=== PATIENT | female | born 1940 | race African-American/Black ===

== ENCOUNTER 2018-05-29 06:14 | Inpatient (IN) ==
[2018-05-29] MEDS ORDERED: ONDANSETRON 4 MG/2 ML VIAL IV STA (06:35)
[2018-05-29] MEDS ORDERED: ALBUTEROL/IPRATROPIUM 3 ML NEB RESP TX STA (06:35)
[2018-05-29] MEDS ORDERED: methylPREDNISolone SOD SUC 125 MG/2 ML VIAL IV STA (06:35)
[2018-05-29] MEDS ORDERED: LEVOFLOXACIN INJ 750 MG in PREMIX 1 EACH IV STA (06:35)
[2018-05-29 07:10] LABS: Basophils % 0.3 % (0.0-0.8); Eosinophils # 0.1 10*3/uL (0.0-0.87); Eosinophils % 1.6 % (0.00-10.9); Hematocrit 29.8 VOL% (35.7-47.0); Hemoglobin 9.4 GM/DL (12.0-16.0); Immature Granulocytes % 0.3 %; Immature Granulocytes Absolute 0.02 #; Lymphocytes # 0.8 10*3/uL (1.4-4.0); Lymphocytes % 10.8 % (21.3-54.2); Mean Corpuscular HGB Conc 31.5 GM/DL (32-36); Mean Corpuscular Hemoglobin 28 PG (27-34); Mean Corpuscular Volume 87.6 FL (87-102); Mean Platelet Volume 11.1 FL (9.6-12.0); Monocytes # 0.3 10*3/uL (0.11-0.8); Neutrophils # 6.3 10*3/uL (1.4-7.4); Platelet Count 165 T/CUMM (130-400); White Blood Count 7.5 T/CUMM (4-12)
[2018-05-29 07:45] LABS: Alanine Aminotransferase 24 U/L (13-56); Albumin 3.3 G/DL (3.4-5.0); Alkaline Phosphatase 65 U/L (45-117); Aspartate Amino Transferase 20 U/L (0-37); Bilirubin,Total < 0.39 MG/DL (0.2-1.0); Blood Urea Nitrogen 30 MG/DL (7-18); Calcium 8.7 MG/DL (8.5-10.1); Glucose 114 MG/DL (74-106); Osmolality,Calculated 289.1 MOS/KG (273-304); Potassium 4.4 MMOL/L (3.5-5.1); Sodium 142 MMOL/L (136-145); Total Protein 7.1 G/DL (6.4-8.3)
[2018-05-29 08:04] LABS: Apearance,Urine CLEAR (Clear); Bilirubin,Urine Negative (Negative); Blood, Urine Negative (Negative); Glucose,Urine (UA) Negative (Negative); Ketones,Urine Negative (Negative); Nitrite,Urine Negative (Negative); Protein,Urine 30 MG/DL; RBC,Urine <1 /HPF (0-4); Squamous Epithelial Cell,Urine Occasional /HPF (0-10); Urine Color Yellow (Yellow); Urine Specific Gravity 1.012 (1.001-1.035); Urine Urobilinogen < 2.0 EU/DL (0.2-1.0); WBC,Urine 1 /HPF (0-6)
[2018-05-29] MEDS ORDERED: ONDANSETRON 4 MG/2 ML VIAL IV PRN (09:11)
[2018-05-29] MEDS ORDERED: GLUCAGON 1 MG VIAL IM PRN ×2 (10:04→15:44)
[2018-05-29] MEDS ORDERED: DEXTROSE 50% 25 GM/50 ML VIAL IV PRN ×2 (10:04→15:44)
[2018-05-29] MEDS: PANTOPRAZOLE 40 MG TABLET PO SCH (11:15)
[2018-05-29] MEDS: INSULIN LISPRO 100 UNIT/ML SUBCUT SCH ×2 (17:01→20:33)
[2018-05-29] MEDS: FUROSEMIDE 40 MG/4 ML VIAL IV SCH (17:01)
[2018-05-29] MEDS: INSULIN ASPART PROTAMINE/ASPART 70/30 100 UNIT/ML SUBCUT SCH (18:01)
[2018-05-29] MEDS: DOXAZOSIN 4 MG TABLET PO SCH (20:33)
[2018-05-29] MEDS: CETIRIZINE 10 MG TABLET PO SCH (20:33)
[2018-05-29] MEDS: ROSUVASTATIN 20 MG TABLET PO SCH (20:33)
[2018-05-30 04:57] LABS: Basophils % 0.1 % (0.0-0.8); Hematocrit 28.1 VOL% (35.7-47.0); Immature Granulocytes % 1.5 %; Immature Granulocytes Absolute 0.25 #; Lymphocytes # 1.1 10*3/uL (1.4-4.0); Lymphocytes % 6.6 % (21.3-54.2); Mean Corpuscular Hemoglobin 28 PG (27-34); Mean Corpuscular Volume 86.2 FL (87-102); Mean Platelet Volume 12.4 FL (9.6-12.0); Neutrophils # 14.7 10*3/uL (1.4-7.4); Neutrophils % 85.8 % (38.7-73.9); Platelet Count 161 T/CUMM (130-400); Red Blood Count 3.26 MC/CUMM (3.8-5.5); Red Cell Distribution Width 14.6 % (9.3-17.3); White Blood Count 17.1 T/CUMM (4-12)
[2018-05-30 05:21] LABS: Hypochromasia 1+
[2018-05-30 05:22] LABS: Microcytosis 1+; Ovalocytes Few; Polychromasia Slight
[2018-05-30 05:23] LABS: Platelet Estimate Adequate
[2018-05-30 05:27] LABS: Calcium 8.7 MG/DL (8.5-10.1); Osmolality,Calculated 291.8 MOS/KG (273-304); Potassium 4.2 MMOL/L (3.5-5.1); Risk Ratio 2.1; Thyroid Stimulating Hormone 0.839 uIU/ml (0.358-3.74); VLDL CHOLESTEROL 13.4 MG/DL
[2018-05-30] MEDS ORDERED: INSULIN ASPART PROTAMINE/ASPART 70/30 100 UNIT/ML SUBCUT SCH ×2 (08:00)
[2018-05-30] MEDS: LEVOFLOXACIN INJ 750 MG in PREMIX 1 EACH IV SCH (08:56)
[2018-05-30] MEDS: PANTOPRAZOLE 40 MG TABLET PO SCH (08:56)
[2018-05-30] MEDS: DOXAZOSIN 4 MG TABLET PO SCH ×2 (08:56→21:23)
[2018-05-30] MEDS: FUROSEMIDE 40 MG/4 ML VIAL IV SCH ×2 (08:56→17:00)
[2018-05-30] MEDS: INSULIN LISPRO 100 UNIT/ML SUBCUT SCH ×4 (08:57→21:24)
[2018-05-30] MEDS: MULTIVITAMIN (CENTRUM) TABLET PO SCH (08:57)
[2018-05-30] MEDS ORDERED: cloNIDine 0.1 MG TABLET PO SCH (09:00)
[2018-05-30] MEDS: INSULIN ASPART PROTAMINE/ASPART 70/30 100 UNIT/ML SUBCUT SCH (17:00)
[2018-05-30] MEDS: ROSUVASTATIN 20 MG TABLET PO SCH (21:24)
[2018-05-30] MEDS: CETIRIZINE 10 MG TABLET PO SCH (21:24)
[2018-05-31 04:21] LABS: Basophils % 0.1 % (0.0-0.8); Eosinophils # 0.1 10*3/uL (0.0-0.87); Eosinophils % 0.6 % (0.00-10.9); Hematocrit 25.6 VOL% (35.7-47.0); Immature Granulocytes Absolute 0.15 #; Lymphocytes % 14.1 % (21.3-54.2); Mean Corpuscular HGB Conc 31.3 GM/DL (32-36); Mean Corpuscular Hemoglobin 27 PG (27-34); Mean Corpuscular Volume 87.4 FL (87-102); Mean Platelet Volume 11.9 FL (9.6-12.0); Monocytes # 1.1 10*3/uL (0.11-0.8); Monocytes % 7.4 % (1.7-12.7); Neutrophils % 76.8 % (38.7-73.9); Platelet Count 143 T/CUMM (130-400); Red Blood Count 2.93 MC/CUMM (3.8-5.5); Red Cell Distribution Width 15.1 % (9.3-17.3); White Blood Count 14.3 T/CUMM (4-12)
[2018-05-31 04:47] LABS: Calcium 8.5 MG/DL (8.5-10.1); Osmolality,Calculated 291.3 MOS/KG (273-304); Potassium 4.1 MMOL/L (3.5-5.1)
[2018-05-31] MEDS: INSULIN LISPRO 100 UNIT/ML SUBCUT SCH ×4 (08:27→21:37)
[2018-05-31] MEDS: DOXAZOSIN 4 MG TABLET PO SCH ×2 (09:00→21:36)
[2018-05-31] MEDS: INSULIN ASPART PROTAMINE/ASPART 70/30 100 UNIT/ML SUBCUT SCH ×2 (09:00→16:52)
[2018-05-31] MEDS: MULTIVITAMIN (CENTRUM) TABLET PO SCH (09:01)
[2018-05-31] MEDS: PANTOPRAZOLE 40 MG TABLET PO SCH (09:01)
[2018-05-31] MEDS ORDERED: BISACODYL 5 MG TABLET PO ONE (09:04)
[2018-05-31] MEDS: cephALEXin 500 MG CAPSULE PO SCH ×2 (11:58→21:36)
[2018-05-31] MEDS: CETIRIZINE 10 MG TABLET PO SCH (21:36)
[2018-05-31] MEDS: ROSUVASTATIN 20 MG TABLET PO SCH (21:37)
[2018-06-01 04:28] LABS: Basophils % 0.1 % (0.0-0.8); Eosinophils # 0.3 10*3/uL (0.0-0.87); Eosinophils % 2.7 % (0.00-10.9); Hematocrit 25.8 VOL% (35.7-47.0); Immature Granulocytes % 0.7 %; Immature Granulocytes Absolute 0.07 #; Lymphocytes # 1.9 10*3/uL (1.4-4.0); Lymphocytes % 19.7 % (21.3-54.2); Mean Corpuscular Hemoglobin 27 PG (27-34); Mean Corpuscular Volume 87.8 FL (87-102); Mean Platelet Volume 11.2 FL (9.6-12.0); Monocytes # 0.8 10*3/uL (0.11-0.8); Monocytes % 7.8 % (1.7-12.7); Neutrophils # 6.8 10*3/uL (1.4-7.4); Platelet Count 149 T/CUMM (130-400); Red Blood Count 2.94 MC/CUMM (3.8-5.5); Red Cell Distribution Width 15.2 % (9.3-17.3); White Blood Count 9.8 T/CUMM (4-12)
[2018-06-01 04:51] LABS: Calcium 8.7 MG/DL (8.5-10.1); Osmolality,Calculated 294.3 MOS/KG (273-304); Potassium 4.2 MMOL/L (3.5-5.1)
[2018-06-01] MEDS: LEVOFLOXACIN INJ 750 MG in PREMIX 1 EACH IV SCH (10:38)
[2018-06-01] MEDS: DOXAZOSIN 4 MG TABLET PO SCH ×2 (10:39→21:48)
[2018-06-01] MEDS: INSULIN ASPART PROTAMINE/ASPART 70/30 100 UNIT/ML SUBCUT SCH ×2 (10:39→17:27)
[2018-06-01] MEDS: cephALEXin 500 MG CAPSULE PO SCH ×2 (10:40→21:49)
[2018-06-01] MEDS: INSULIN LISPRO 100 UNIT/ML SUBCUT SCH ×4 (10:40→21:49)
[2018-06-01] MEDS: PANTOPRAZOLE 40 MG TABLET PO SCH (10:40)
[2018-06-01] MEDS: MULTIVITAMIN (CENTRUM) TABLET PO SCH (10:40)
[2018-06-01] MEDS: ACETAMINOPHEN 325 MG TABLET PO PRN (17:30)
[2018-06-01] MEDS ORDERED: IBUPROFEN 600 MG TABLET PO PRN (18:39)
[2018-06-01] MEDS: CETIRIZINE 10 MG TABLET PO SCH (21:49)
[2018-06-01] MEDS: ROSUVASTATIN 20 MG TABLET PO SCH (21:49)
[2018-06-02 04:58] LABS: Basophils % 0.3 % (0.0-0.8); Eosinophils # 0.3 10*3/uL (0.0-0.87); Eosinophils % 3.3 % (0.00-10.9); Hematocrit 26.5 VOL% (35.7-47.0); Hemoglobin 8.3 GM/DL (12.0-16.0); Immature Granulocytes % 0.4 %; Immature Granulocytes Absolute 0.03 #; Lymphocytes # 1.8 10*3/uL (1.4-4.0); Lymphocytes % 22.9 % (21.3-54.2); Mean Corpuscular HGB Conc 31.3 GM/DL (32-36); Mean Corpuscular Hemoglobin 27 PG (27-34); Mean Corpuscular Volume 84.9 FL (87-102); Mean Platelet Volume 11.7 FL (9.6-12.0); Monocytes # 0.7 10*3/uL (0.11-0.8); Monocytes % 9.3 % (1.7-12.7); Neutrophils # 4.9 10*3/uL (1.4-7.4); Neutrophils % 63.8 % (38.7-73.9); Platelet Count 164 T/CUMM (130-400); Red Blood Count 3.12 MC/CUMM (3.8-5.5); White Blood Count 7.6 T/CUMM (4-12)
[2018-06-02 05:15] LABS: Osmolality,Calculated 292.3 MOS/KG (273-304); Potassium 4.3 MMOL/L (3.5-5.1)
[2018-06-02] MEDS: INSULIN LISPRO 100 UNIT/ML SUBCUT SCH ×4 (08:00→20:33)
[2018-06-02] MEDS: INSULIN ASPART PROTAMINE/ASPART 70/30 100 UNIT/ML SUBCUT SCH ×2 (10:25→16:58)
[2018-06-02] MEDS: ASPIRIN EC 81 MG TABLET PO SCH (10:35)
[2018-06-02] MEDS: DOXAZOSIN 4 MG TABLET PO SCH ×2 (10:35→22:25)
[2018-06-02] MEDS: amLODIPine 5 MG TABLET PO SCH (10:35)
[2018-06-02] MEDS: PANTOPRAZOLE 40 MG TABLET PO SCH (10:35)
[2018-06-02] MEDS: MULTIVITAMIN (CENTRUM) TABLET PO SCH (10:35)
[2018-06-02] MEDS: cephALEXin 500 MG CAPSULE PO SCH ×2 (10:36→22:25)
[2018-06-02] MEDS: FUROSEMIDE 40 MG TABLET PO SCH ×2 (10:36→16:57)
[2018-06-02] MEDS: CETIRIZINE 10 MG TABLET PO SCH (22:25)
[2018-06-02] MEDS: ROSUVASTATIN 20 MG TABLET PO SCH (22:25)
[2018-06-02] MEDS: ENOXAPARIN 30 MG/0.3 ML SYRINGE SUBCUT SCH (22:26)
[2018-06-03 06:27] LABS: Basophils % 0.2 % (0.0-0.8); Eosinophils # 0.2 10*3/uL (0.0-0.87); Hematocrit 27.9 VOL% (35.7-47.0); Hemoglobin 8.9 GM/DL (12.0-16.0); Immature Granulocytes % 0.7 %; Immature Granulocytes Absolute 0.06 #; Lymphocytes # 1.7 10*3/uL (1.4-4.0); Lymphocytes % 19.3 % (21.3-54.2); Mean Corpuscular HGB Conc 31.9 GM/DL (32-36); Mean Corpuscular Hemoglobin 27 PG (27-34); Mean Corpuscular Volume 84.3 FL (87-102); Mean Platelet Volume 11.8 FL (9.6-12.0); Monocytes # 0.7 10*3/uL (0.11-0.8); Neutrophils # 6.3 10*3/uL (1.4-7.4); Neutrophils % 69.8 % (38.7-73.9); Platelet Count 182 T/CUMM (130-400); Red Blood Count 3.31 MC/CUMM (3.8-5.5)
[2018-06-03 06:55] LABS: Calcium 9.2 MG/DL (8.5-10.1)
[2018-06-03] MEDS: INSULIN LISPRO 100 UNIT/ML SUBCUT SCH ×4 (07:09→22:54)
[2018-06-03] MEDS: DOXAZOSIN 4 MG TABLET PO SCH ×2 (08:34→20:37)
[2018-06-03] MEDS: INSULIN ASPART PROTAMINE/ASPART 70/30 100 UNIT/ML SUBCUT SCH ×2 (08:34→16:05)
[2018-06-03] MEDS: MULTIVITAMIN (CENTRUM) TABLET PO SCH (08:34)
[2018-06-03] MEDS: amLODIPine 5 MG TABLET PO SCH (08:34)
[2018-06-03] MEDS: PANTOPRAZOLE 40 MG TABLET PO SCH (08:34)
[2018-06-03] MEDS: ASPIRIN EC 81 MG TABLET PO SCH (08:34)
[2018-06-03] MEDS: cephALEXin 500 MG CAPSULE PO SCH ×2 (08:34→20:38)
[2018-06-03] MEDS: FUROSEMIDE 40 MG TABLET PO SCH ×2 (08:36→16:04)
[2018-06-03] MEDS: ISOSORBIDE MONONITRATE 30 MG TABLET PO SCH (09:47)
[2018-06-03] MEDS ORDERED: amLODIPine 5 MG TABLET PO ONE (10:00)
[2018-06-03] MEDS: LEVOFLOXACIN INJ 750 MG in PREMIX 1 EACH IV SCH (10:35)
[2018-06-03] MEDS ORDERED: traMADol 50 MG TABLET PO PRN (10:48)
[2018-06-03] MEDS ORDERED: LEVOFLOXACIN 750 MG TABLET PO ONE (11:00)
[2018-06-03] MEDS: ALBUTEROL 1.25 MG/3 ML NEB RESP TX SCH ×3 (11:45→19:54)
[2018-06-03 11:58] LABS: Creatinine,Urine Random 92 MG/DL; Total Protein,Urine Random 20 MG/DL; Urea Nitrogen, Urine Random 512 MG/DL
[2018-06-03] MEDS: ACETAMINOPHEN 325 MG TABLET PO PRN (20:35)
[2018-06-03] MEDS: ROSUVASTATIN 20 MG TABLET PO SCH (20:37)
[2018-06-03] MEDS: CETIRIZINE 10 MG TABLET PO SCH (20:37)
[2018-06-03] MEDS: ENOXAPARIN 30 MG/0.3 ML SYRINGE SUBCUT SCH (20:42)
[2018-06-04] MEDS: ALBUTEROL 1.25 MG/3 ML NEB RESP TX SCH ×4 (00:51→20:10)
[2018-06-04 05:50] LABS: Basophils % 0.2 % (0.0-0.8); Eosinophils # 0.2 10*3/uL (0.0-0.87); Eosinophils % 2.1 % (0.00-10.9); Hematocrit 29.1 VOL% (35.7-47.0); Hemoglobin 9.4 GM/DL (12.0-16.0); Immature Granulocytes % 0.6 %; Immature Granulocytes Absolute 0.05 #; Lymphocytes % 22.5 % (21.3-54.2); Mean Corpuscular HGB Conc 32.3 GM/DL (32-36); Mean Corpuscular Hemoglobin 27 PG (27-34); Mean Corpuscular Volume 84.6 FL (87-102); Mean Platelet Volume 11.4 FL (9.6-12.0); Monocytes # 0.7 10*3/uL (0.11-0.8); Monocytes % 7.6 % (1.7-12.7); Neutrophils # 5.8 10*3/uL (1.4-7.4); Platelet Count 192 T/CUMM (130-400); Red Blood Count 3.44 MC/CUMM (3.8-5.5); Red Cell Distribution Width 14.9 % (9.3-17.3); White Blood Count 8.7 T/CUMM (4-12)
[2018-06-04 05:59] LABS: Calcium 9.1 MG/DL (8.5-10.1); Osmolality,Calculated 293.1 MOS/KG (273-304)
[2018-06-04] MEDS: FUROSEMIDE 40 MG TABLET PO SCH (09:29)
[2018-06-04] MEDS: INSULIN LISPRO 100 UNIT/ML SUBCUT SCH ×4 (09:29→22:26)
[2018-06-04] MEDS: INSULIN ASPART PROTAMINE/ASPART 70/30 100 UNIT/ML SUBCUT SCH ×2 (09:29→17:06)
[2018-06-04] MEDS: MULTIVITAMIN (CENTRUM) TABLET PO SCH (09:30)
[2018-06-04] MEDS: ASPIRIN EC 81 MG TABLET PO SCH (09:30)
[2018-06-04] MEDS: DOXAZOSIN 4 MG TABLET PO SCH ×2 (09:30→22:25)
[2018-06-04] MEDS: ISOSORBIDE MONONITRATE 30 MG TABLET PO SCH (09:31)
[2018-06-04] MEDS: amLODIPine 10 MG TABLET PO SCH (09:31)
[2018-06-04] MEDS: cephALEXin 500 MG CAPSULE PO SCH ×2 (09:31→22:25)
[2018-06-04] MEDS: PANTOPRAZOLE 40 MG TABLET PO SCH (09:32)
[2018-06-04] MEDS ORDERED: KETOROLAC 10 MG TABLET PO ONE (10:30)
[2018-06-04] MEDS: METHOCARBAMOL 500 MG TABLET PO PRN (14:36)
[2018-06-04] MEDS: FLUCONAZOLE 100 MG TABLET PO SCH (14:36)
[2018-06-04] MEDS: ROSUVASTATIN 20 MG TABLET PO SCH (22:26)
[2018-06-04] MEDS: CETIRIZINE 10 MG TABLET PO SCH (22:27)
[2018-06-04] MEDS: ENOXAPARIN 30 MG/0.3 ML SYRINGE SUBCUT SCH (22:27)
[2018-06-05] MEDS: ALBUTEROL 1.25 MG/3 ML NEB RESP TX SCH ×2 (00:40→06:57)
[2018-06-05 06:16] LABS: Basophils % 0.3 % (0.0-0.8); Eosinophils # 0.2 10*3/uL (0.0-0.87); Eosinophils % 3.4 % (0.00-10.9); Hematocrit 25.8 VOL% (35.7-47.0); Hemoglobin 8.2 GM/DL (12.0-16.0); Immature Granulocytes % 0.7 %; Immature Granulocytes Absolute 0.05 #; Lymphocytes # 1.6 10*3/uL (1.4-4.0); Lymphocytes % 22.9 % (21.3-54.2); Mean Corpuscular HGB Conc 31.8 GM/DL (32-36); Mean Corpuscular Hemoglobin 27 PG (27-34); Mean Corpuscular Volume 85.4 FL (87-102); Mean Platelet Volume 11.6 FL (9.6-12.0); Monocytes # 0.6 10*3/uL (0.11-0.8); Monocytes % 9.1 % (1.7-12.7); Neutrophils # 4.5 10*3/uL (1.4-7.4); Neutrophils % 63.6 % (38.7-73.9); Platelet Count 183 T/CUMM (130-400); Red Blood Count 3.02 MC/CUMM (3.8-5.5)
[2018-06-05 06:47] LABS: Calcium 8.4 MG/DL (8.5-10.1)
[2018-06-05 06:49] LABS: Calcium 8.4 MG/DL (8.5-10.1); Osmolality,Calculated 291.1 MOS/KG (273-304)
[2018-06-05] MEDS: INSULIN LISPRO 100 UNIT/ML SUBCUT SCH (06:59)
[2018-06-05 07:53] VITALS: BP 151/68
[2018-06-05] MEDS: PANTOPRAZOLE 40 MG TABLET PO SCH (08:30)
[2018-06-05] MEDS: cephALEXin 500 MG CAPSULE PO SCH (08:30)
[2018-06-05] MEDS: FLUCONAZOLE 100 MG TABLET PO SCH (08:30)
[2018-06-05] MEDS: DOXAZOSIN 4 MG TABLET PO SCH (08:30)
[2018-06-05] MEDS: ASPIRIN EC 81 MG TABLET PO SCH (08:31)
[2018-06-05] MEDS: METHOCARBAMOL 500 MG TABLET PO PRN (08:31)
[2018-06-05] MEDS: INSULIN ASPART PROTAMINE/ASPART 70/30 100 UNIT/ML SUBCUT SCH (08:31)
[2018-06-05] MEDS: amLODIPine 10 MG TABLET PO SCH (08:31)
[2018-06-05] MEDS: MULTIVITAMIN (CENTRUM) TABLET PO SCH (08:31)
[2018-06-05] MEDS: ISOSORBIDE MONONITRATE 30 MG TABLET PO SCH (08:31)
[2018-06-05] MEDS ORDERED: FUROSEMIDE 40 MG TABLET PO SCH (09:00)
== END 2018-06-05 12:14 | disposition swing bed (61) | DRG 193 ==
LOC: N.ED 06:14 → N.EDINP 08:16 → SUATTDRO 08:16 → N.2E 13:25
PROVIDERS: ADMIT Internal Medicine; ATTEND Hospitalist